=== PATIENT | male | born 1950 | race Caucasian/White ===

== ENCOUNTER 2019-09-06 11:07 | Emergency (ER) | payer MEDICARE ==
[2019-09-06 13:56] LABS: #Eosinphils 0.1 thou/uL (0.0-0.7); #Lymphocytes 1.6 thou/uL (1.20-3.40); #Monocytes 0.9 thou/uL (0.11-0.59); #Neutrophils 5.9 thou/uL (1.40-6.50); %Basophils 0.3 % (0.0-1.0); %Eosinophils 1.7 % (0.0-10.0); %Lymphocytes 18.5 % (21.0-51.0); %Monocytes 10.9 % (0.0-10.0); %Neutrophils 68.6 % (42.0-75.0); Hemoglobin 16.6 g/dL (14.0-18.0); Mean Corpuscular HGB CONC 32.6 g/dL (32.0-36.0); Mean Corpuscular Hemoglobin 31.7 pg (27.0-31.0); Mean Corpuscular Volume 97.2 fL (78.0-98.0); Mean Platelet Volume 8.4 fL (7.4-10.4); Platelet Count 187 thou/uL (130-400); RBC Distribution Width 12.9 % (11.5-14.5); Red Blood Cell (RBC) Count 5.25 mill/uL (4.70-6.10); White Blood Cell (WBC) Count 8.6 thou/uL (4.8-10.8)
[2019-09-06 14:12] LABS: ALT (SGPT) 20 U/L (8-55); AST (SGOT) 20 U/L (5-34); Albumin 3.9 g/dL (3.4-4.8); Alkaline Phosphatase 39 U/L (40-110); Anion Gap 13 mmol/L (10-20); BUN (Urea Nitrogen) 29 mg/dL (8.4-25.7); Bilirubin, Total 0.4 mg/dL (0.2-1.2); Calc. Creatinine Clearance 0 mL/min (70-130); Calcium 9.3 mg/dL (7.8-10.44); Carbon Dioxide 26 mmol/L (23-31); Chloride 102 mmol/L (98-107); Estimated GFR-MDRD 58; Globulin 2.9 g/dL (2.4-3.5); Glucose 85 mg/dL (80-115); Potassium 4.9 mmol/L (3.5-5.1); Protein, Total 6.8 g/dL (5.8-8.1); Sodium 136 mmol/L (136-145)
--- NOTE | 2019-09-06 14:31 | RAD ---
RADIOGRAPH CHEST 1 VIEW: DATE: 09/06/2019 HISTORY: 69-year-old male with chest pain FINDINGS: There are no airspace densities, pulmonary edema, pneumothorax, or cardiomegaly. The lateral costophr enic angles are sharp. There is a transvenous permanent pacemaker with generator on the right side, and 2 leads extending into the heart. There is a left subclavian central venous catheter with distal tip overlying SVC. The upper lateral, proximal and of the catheter is truncated, very irregular, and partly folded and distorted. IMPRESSION: 1. No acute cardiopulmonary findings. 2. Abandoned left subclavian central venous catheter. 3. Right-sided transvenous pacemaker.
[2019-09-06] MEDS ORDERED: Aspirin Chewable 81 MG TAB ONE (14:34)
--- NOTE | 2019-09-06 14:48 | RAD ---
RIGHT KNEE FOUR VIEWS: 09/06/19 HISTORY: Bilateral knee pain. FINDINGS/IMPRESSION: Degenerative changes are present. No fracture, dislocation or bony destruction is identified. POS: [facility]
--- NOTE | 2019-09-06 14:49 | RAD ---
LEFT KNEE FOUR VIEWS: 09/06/19 HISTORY: Bilateral knee pain. FINDINGS/IMPRESSION: Degenerative changes are present. There is chondrocalcinosis. No fracture or dislocation or bony dest ruction is identified. POS: [facility]
[2019-09-06] MEDS ORDERED: Ketorolac Tromethamine 30 MG/ML VIAL ONE (14:58)
[2019-09-06] MEDS ORDERED: Dexamethasone 10 MG/ML VIAL ONE (14:58)
[2019-09-06] MEDS ORDERED: Dexamethasone 4 mg/ml Vial ONE ×2 (14:59)
--- NOTE | 2019-09-08 14:51 | EKG ---
Test Reason : Blood Pressure : / mmHG Vent. Rate : 086 BPM Atrial Rate : 086 BPM P-R Int : 134 ms QRS Dur : 086 ms QT Int : 358 ms P-R-T Axes : 067 067 075 degrees QTc Int : 428 ms Normal sinus rhythm Possible Left atrial enlargement Early repolarization Borderline ECG Confirmed by CIARA MEJIA ([id number]), content editor OLINDA THOMAS ([id number]) on 09/08/2019 2:51:09 PM Referred By: Confirmed By:CIARA MEJIA
== END 2019-09-06 15:19 | disposition home or self-care (01) ==
LOC: ERS 11:07
DX: M25.562 Pain in left knee (principal); M25.561 Pain in right knee; R07.81 Pleurodynia; Z87.891 Personal history of nicotine dependence; Z85.038 Personal history of other malignant neoplasm of large intestine
CPT/HCPCS: 71045; 80053; 84484; 85025; 93005; 94760; 96372; J1100; J1885